=== PATIENT | male | born 1960 | race Two or more races ===

== ENCOUNTER 2020-08-15 14:55 | Emergency (ER) | payer BC ==
[~2020-08-15] VITALS: Ht 165.1 cm; Wt 68.0 kg
[2020-08-15 15:07] VITALS: BP 141/71
[2020-08-15] MEDS ORDERED: SODIUM CHLORIDE 0.9% 1000ML 1,000 ML IV STA (15:15)
[2020-08-15 15:35] LABS: BASOPHILS % 0.3 % (0.0-1.0); EOSINOPHILS # (AUTO) 0.1 (0.0-0.4); EOSINOPHILS % 0.9 % (0.0-6.0); HEMOGLOBIN 15.8 g/dL (14.0-18.0); LYMPHOCYTES # (AUTO) 1.9 (1.0-3.2); LYMPHOCYTES % 24.5 % (18.0-39.1); MEAN CORPUSCULAR HEMOGLOBIN 29.5 pg (28-32); MEAN CORPUSCULAR HGB CONC 33.6 g/dL (31-35); MEAN CORPUSCULAR VOLUME 87.9 fL (81-99); MONOCYTES # (AUTO) 0.4 (0.2-0.8); MONOCYTES % 4.7 % (4.4-11.3); NEUTROPHILS # (AUTO) 5.3 (2.1-6.9); NEUTROPHILS % 69.3 % (38.7-80.0); PLATELET COUNT 216 x10e3/uL (140-360); RED BLOOD COUNT 5.35 x10e6/uL (4.3-5.7); RED CELL DISTRIBUTION WIDTH 12.5 % (11.7-14.4)
[2020-08-15 15:52] LABS: INR 0.9; PROTHROMBIN TIME 12.7 seconds (11.9-14.5)
[2020-08-15 15:53] LABS: PARTIAL THROMBOPLASTIN TIME 29.5 seconds (23.8-35.5)
[2020-08-15 16:04] LABS: ALANINE AMINOTRANSFERASE 30 IU/L (0-55); ALBUMIN 4.1 g/dL (3.5-5.0); ALBUMIN/GLOBULIN RATIO 1.1 (0.8-2.0); ALKALINE PHOSPHATASE 107 IU/L (40-150); ANION GAP 13.8 mmol/L (8-16); BLOOD UREA NITROGEN 20 mg/dL (7-26); BUN/CREATININE RATIO 18 (6-25); CALCIUM 9.5 mg/dL (8.4-10.2); CARBON DIOXIDE 27 mmol/L (22-29); CHLORIDE 100 mmol/L (98-107); CREATINE KINASE 156 IU/L (30-200); CREATININE, SERUM 1.13 mg/dL (0.72-1.25); EST GLOMERULAR FILTRATION RATE > 60 ML/MIN (60-); GLUCOSE 155 mg/dL (74-118); MAGNESIUM 2.1 MG/DL (1.3-2.1); POTASSIUM 3.8 mmol/L (3.5-5.1); SODIUM 137 mmol/L (136-145)
== END 2020-08-15 17:13 | disposition home or self-care (01) ==
LOC: ER 15:38
DX: R42 Dizziness and giddiness (principal); R94.31 Abnormal electrocardiogram [ECG] [EKG]; I10 Essential (primary) hypertension; E78.5 Hyperlipidemia, unspecified
CPT/HCPCS: 36415; 70450; 71045; 80053; 82550; 82553; 83735; 84484; 85025; 85610; 85730; 93005; 99284; J7030

== ENCOUNTER 2020-08-24 18:13 | Emergency (ER) | payer BC ==
[~2020-08-24] VITALS: Ht 165.1 cm; Wt 68.0 kg
[2020-08-24] MEDS ORDERED: AMLODIPINE BESYL5 MG PO (18:31)
[2020-08-24] MEDS ORDERED: CLONIDINE HCL 0.1 MG TAB PO ONE (19:00)
[2020-08-24 19:17] VITALS: BP 129/89
== END 2020-08-24 19:30 | disposition home or self-care (01) ==
LOC: ER 18:17
DX: I10 Essential (primary) hypertension (principal); E78.5 Hyperlipidemia, unspecified
CPT/HCPCS: 99282

== ENCOUNTER 2020-09-09 14:59 | Inpatient (IN) | payer BC ==
[~2020-09-09] VITALS: Ht 167.6 cm; Wt 63.5 kg
[~2020-09-09 14:59] MED LIST: AMLODIPINE BESYL5 MG PO
[2020-09-09 15:55] LABS: INR 0.83; PARTIAL THROMBOPLASTIN TIME 27.4 seconds (23.8-35.5); PROTHROMBIN TIME 11.9 seconds (11.9-14.5)
[2020-09-09 16:00] LABS: BASOPHILS % 0.3 % (0.0-1.0); EOSINOPHILS # (AUTO) 0.1 (0.0-0.4); EOSINOPHILS % 1.4 % (0.0-6.0); HEMOGLOBIN 14.5 g/dL (14.0-18.0); LYMPHOCYTES % 28.7 % (18.0-39.1); MEAN CORPUSCULAR HGB CONC 33.7 g/dL (31-35); MONOCYTES # (AUTO) 0.4 (0.2-0.8); MONOCYTES % 5.1 % (4.4-11.3); NEUTROPHILS # (AUTO) 4.5 (2.1-6.9); NEUTROPHILS % 64.2 % (38.7-80.0); PLATELET COUNT 230 x10e3/uL (140-360); RED BLOOD COUNT 4.83 x10e6/uL (4.3-5.7); RED CELL DISTRIBUTION WIDTH 12.9 % (11.7-14.4)
[2020-09-09 16:02] LABS: ALANINE AMINOTRANSFERASE 23 IU/L (0-55); ALBUMIN 3.9 g/dL (3.5-5.0); ALKALINE PHOSPHATASE 101 IU/L (40-150); BLOOD UREA NITROGEN 22 mg/dL (7-26); BUN/CREATININE RATIO 23 (6-25); CALCIUM 8.9 mg/dL (8.4-10.2); CARBON DIOXIDE 27 mmol/L (22-29); CHLORIDE 102 mmol/L (98-107); CREATINE KINASE 114 IU/L (30-200); CREATININE, SERUM 0.95 mg/dL (0.72-1.25); EST GLOMERULAR FILTRATION RATE > 60 ML/MIN (60-); GLUCOSE 143 mg/dL (74-118); SODIUM 140 mmol/L (136-145)
[2020-09-09] MEDS ORDERED: CLOPIDOGREL BISULFATE 75 MG TAB PO ONE (16:30)
[2020-09-09] MEDS ORDERED: ASPIRIN 325 MG TAB PO ONE (16:30)
[2020-09-09 18:45] VITALS: BP 164/96
[2020-09-09 20:00] VITALS: BP 152/97
[2020-09-09] MEDS: ATORVASTATIN 40 MG TAB PO SCH (20:56)
[2020-09-09 22:16] VITALS: BP 152/97
[2020-09-09 22:19] VITALS: BP 152/97
[2020-09-10] VITALS (8 sets, daily range): BP systolic 127–170; BP diastolic 80–95
[2020-09-10] MEDS ORDERED: POTASSIUM CHLORIDE 20 MEQ TAB CR PO PRN (02:00)
[2020-09-10] MEDS ORDERED: DIPHENHYDRAMINE HCL 25 MG CAP PO PRN (02:00)
[2020-09-10] MEDS ORDERED: ONDANSETRON HCL INJ 2MG/ML 2ML 2 MG/ML VIAL IV PRN (02:00)
[2020-09-10] MEDS ORDERED: MELATONIN 5 MG TABLET PO PRN (02:00)
[2020-09-10] MEDS ORDERED: ACETAMINOPHEN 325 MG TAB PO PRN (02:00)
[2020-09-10] MEDS ORDERED: DEXTROSE 50% SYRINGE 50 ML IV PRN (02:00)
[2020-09-10] MEDS ORDERED: TRAMADOL HCL 50 MG TAB PO PRN (02:00)
[2020-09-10] MEDS ORDERED: HYDRALAZINE HCL 20 MG/ML VIAL IV PRN (02:00)
[2020-09-10 05:04] LABS: BASOPHILS % 0.5 % (0.0-1.0); EOSINOPHILS # (AUTO) 0.1 (0.0-0.4); EOSINOPHILS % 1.2 % (0.0-6.0); HEMOGLOBIN 15.1 g/dL (14.0-18.0); LYMPHOCYTES # (AUTO) 2.3 (1.0-3.2); LYMPHOCYTES % 35.3 % (18.0-39.1); MEAN CORPUSCULAR HEMOGLOBIN 29.5 pg (28-32); MEAN CORPUSCULAR HGB CONC 33.6 g/dL (31-35); MEAN CORPUSCULAR VOLUME 87.9 fL (81-99); MONOCYTES # (AUTO) 0.4 (0.2-0.8); MONOCYTES % 6.3 % (4.4-11.3); NEUTROPHILS # (AUTO) 3.7 (2.1-6.9); NEUTROPHILS % 56.4 % (38.7-80.0); PLATELET COUNT 218 x10e3/uL (140-360); RED BLOOD COUNT 5.12 x10e6/uL (4.3-5.7); RED CELL DISTRIBUTION WIDTH 12.8 % (11.7-14.4)
[2020-09-10 05:27] LABS: ALANINE AMINOTRANSFERASE 22 IU/L (0-55); ALBUMIN 3.8 g/dL (3.5-5.0); ALKALINE PHOSPHATASE 87 IU/L (40-150); ANION GAP 12.6 mmol/L (8-16); BLOOD UREA NITROGEN 14 mg/dL (7-26); BUN/CREATININE RATIO 18 (6-25); CARBON DIOXIDE 27 mmol/L (22-29); CHLORIDE 103 mmol/L (98-107); CREATININE, SERUM 0.79 mg/dL (0.72-1.25); EST GLOMERULAR FILTRATION RATE > 60 ML/MIN (60-); GLUCOSE 114 mg/dL (74-118); POTASSIUM 3.6 mmol/L (3.5-5.1); SODIUM 139 mmol/L (136-145)
[2020-09-10] MEDS ORDERED: SODIUM CHLORIDE 0.9% 100 ML ONE (06:57)
[2020-09-10] MEDS ORDERED: IOPAMIDOL 370 MG/ML 200 ML INFUS..BTL INJ ONE (06:57)
[2020-09-10] MEDS: PANTOPRAZOLE SOD 40 MG TABEC PO SCH (08:20)
[2020-09-10] MEDS: ASPIRIN 81 MG ENTERIC COATED PO SCH (08:21)
[2020-09-10] MEDS: AMLODIPINE BESYLATE 5 MG TAB PO SCH (08:21)
[2020-09-10] MEDS ORDERED: CLOPIDOGREL BISULFATE 75 MG TAB PO SCH (09:00)
[2020-09-10 10:35] LABS: CREATINE KINASE MB 0.8 ng/mL (0-5.0)
[2020-09-10] MEDS: LOSARTAN POTASSIUM 100 MG TAB PO SCH ×2 (14:30→16:25)
[2020-09-10] MEDS ORDERED: CLOPIDOGREL BISULFATE 75 MG TAB PO NR (15:00)
[2020-09-10] MEDS ORDERED: COREG6.25 MG PO (15:31)
[2020-09-10 16:25] LABS: CHOL/HDL RATIO 3.1 (3.9-4.7)
[2020-09-10 16:47] LABS: THYROID STIMULATING HORMONE 1.466 uIU/mL (0.350-4.940)
[2020-09-10] MEDS: ATORVASTATIN 40 MG TAB PO SCH (20:11)
[2020-09-11] VITALS (9 sets, daily range): BP systolic 129–162; BP diastolic 76–97
[2020-09-11 06:24] LABS: BASOPHILS % 0.2 % (0.0-1.0); EOSINOPHILS # (AUTO) 0.1 (0.0-0.4); EOSINOPHILS % 1.4 % (0.0-6.0); HEMATOCRIT 43.1 % (38.2-49.6); HEMOGLOBIN 14.5 g/dL (14.0-18.0); LYMPHOCYTES # (AUTO) 2.1 (1.0-3.2); LYMPHOCYTES % 32.8 % (18.0-39.1); MEAN CORPUSCULAR HEMOGLOBIN 29.7 pg (28-32); MEAN CORPUSCULAR HGB CONC 33.6 g/dL (31-35); MEAN CORPUSCULAR VOLUME 88.1 fL (81-99); MONOCYTES # (AUTO) 0.4 (0.2-0.8); MONOCYTES % 6.6 % (4.4-11.3); NEUTROPHILS # (AUTO) 3.8 (2.1-6.9); NEUTROPHILS % 58.7 % (38.7-80.0); PLATELET COUNT 213 x10e3/uL (140-360); RED BLOOD COUNT 4.89 x10e6/uL (4.3-5.7); RED CELL DISTRIBUTION WIDTH 12.9 % (11.7-14.4)
[2020-09-11 07:08] LABS: ALANINE AMINOTRANSFERASE 18 IU/L (0-55); ALBUMIN 3.6 g/dL (3.5-5.0); ALKALINE PHOSPHATASE 79 IU/L (40-150); ANION GAP 13.8 mmol/L (8-16); BLOOD UREA NITROGEN 17 mg/dL (7-26); BUN/CREATININE RATIO 18 (6-25); CARBON DIOXIDE 28 mmol/L (22-29); CHLORIDE 100 mmol/L (98-107); CHOL/HDL RATIO 2.9 (3.9-4.7); CHOLESTEROL 138 MD/DL (0-199); CREATININE, SERUM 0.97 mg/dL (0.72-1.25); EST GLOMERULAR FILTRATION RATE > 60 ML/MIN (60-); GLUCOSE 110 mg/dL (74-118); HDL CHOLESTEROL 47 MG/DL (40-60); LDL CHOLESTEROL 69 MG/DL (60-130); MAGNESIUM 2.1 MG/DL (1.3-2.1); PHOSPHORUS 3.9 MG/DL (2.3-4.7); POTASSIUM 3.8 mmol/L (3.5-5.1); SODIUM 138 mmol/L (136-145); TRIGLYCERIDES 109 MG/DL (0-149)
[2020-09-11] MEDS: ASPIRIN 81 MG ENTERIC COATED PO SCH (08:52)
[2020-09-11] MEDS: PANTOPRAZOLE SOD 40 MG TABEC PO SCH (08:53)
[2020-09-11] MEDS: LOSARTAN POTASSIUM 100 MG TAB PO SCH ×2 (09:00→17:00)
[2020-09-11] MEDS: AMLODIPINE BESYLATE 5 MG TAB PO SCH (09:28)
[2020-09-11] MEDS: ATORVASTATIN 40 MG TAB PO SCH (20:08)
[2020-09-12] VITALS: BP 168/93
[2020-09-12 04:00] VITALS: BP 156/97
[2020-09-12 07:06] VITALS: BP 170/95
[2020-09-12] MEDS: PANTOPRAZOLE SOD 40 MG TABEC PO SCH (07:30)
[2020-09-12] MEDS: LOSARTAN POTASSIUM 100 MG TAB PO SCH (09:00)
[2020-09-12] MEDS: ASPIRIN 81 MG ENTERIC COATED PO SCH (09:00)
[2020-09-12] MEDS: AMLODIPINE BESYLATE 5 MG TAB PO SCH (09:00)
[2020-09-12] MEDS ORDERED: MODAFINIL 100 MG TAB PO SCH (09:00)
[2020-09-12 09:08] VITALS: BP 170/95
[2020-09-12 11:16] VITALS: BP 152/88
[2020-09-12 15:51] VITALS: BP 144/94
[2020-09-12] MEDS ORDERED: LOSARTAN POTAS100 MG PO (18:38)
[2020-09-12] MEDS ORDERED: ASPIRIN81 MG PO (18:39)
[2020-09-12] MEDS ORDERED: PLAVIX75 MG PO (18:39)
[2020-09-12] MEDS ORDERED: LIPITOR10 MG PO (18:40)
[2020-09-13] MEDS ORDERED: CLOPIDOGREL BISULFATE 75 MG TAB PO SCH (09:00)
== END 2020-09-12 19:13 | disposition home or self-care (01) | DRG 66 ==
LOC: ER 15:30 → ERHOLD 16:46 → MED/SURG 18:35
PROVIDERS: ADMIT Internal Medicine; ATTEND Internal Medicine
DX: I63.9 Cerebral infarction, unspecified (principal); I10 Essential (primary) hypertension; Z20.822 Contact with and (suspected) exposure to COVID-19; E78.5 Hyperlipidemia, unspecified
CPT/HCPCS: 36415; 70496; 70498; 80053; 80061; 81241; 81400; 82550; 82553; 82607; 83036; 83735; 84100; 84443; 84484; 85025; 85303; 85306; 85610; 85730; 86039; 93005; 93306; 99284; J7050; Q9967; U0002